=== PATIENT | female | born 1950 | race Caucasian/White ===

== ENCOUNTER 2016-10-19 05:41 | Emergency (ER) | payer OTHER ==
[2016-10-19] MEDS ORDERED: IOPAMIDOL 370 (76%) 100 ML VIAL IV ONE (05:42)
[2016-10-19] MEDS ORDERED: ASPIRIN CHEWTAB 81 MG TABLET ONE (06:26)
[2016-10-19 06:46] LABS: ABSOLUTE NEUTROPHIL COUNT 4.2 K/mm3 (1.8-7.7); BASO # 0.1 K/mm3 (0.0-0.2); BASO % 0.6 % (0.2-1.0); EOS # 0.2 (0.0-0.5); EOS % 2.5 % (0.9-2.9); HEMATOCRIT 43.5 % (37.0-47.0); HEMOGLOBIN 13.9 gm/l (12.0-16.0); IMM NEUT% 0.1 % (0-1); LYMPH # 3.8 (1.0-4.8); MEAN CELL VOLUME 92.8 fl (81.0-99.0); MEAN CORPUSCULAR HEMOGLOBIN 29.6 pg (27.0-31.0); MEAN PLATELET VOLUME 9.9 fl (7.4-10.4); MONO # 0.5 (0.0-0.8); MONO % 5.7 % (4-12); NEUT % 48.1 % (43-75); PLATELET COUNT 259 K/mm3 (130-400); RED CELL DISTRIBUTION WIDTH 13.1 % (11.5-14.5)
[2016-10-19 06:55] LABS: ALB/GLOB RATIO 1.3 (>1.0); ALBUMIN 3.9 gm/dL (3.5-5.7); CALCIUM 8.9 mg/dL (8.6-10.3); MAGNESIUM 1.8 mg/dL (1.9-2.7)
[2016-10-19 07:00] LABS: TROPONIN I < 0.01 ng/ml (0.0-0.06)
[2016-10-19 07:03] LABS: CKMB ISOENZYME 2.2 ng/ml (0.6-6.3)
--- NOTE | 2016-10-19 07:40 | CT ---
Exam: CT angiogram chest with contrast Comparison: Chest radiograph 10/19/2016 History: Elevated d-dimer Technique: CT angiogram of the chest was obtained following the administration of 80 mL Isovue-370 intravenous contrast using a CT angiogram pulmonary embolism protocol which was supplemented with MIP reformations constructed at the CT workstation. Findings: Examination is slightly limited due to motion artifact, however examination is still diagnostic. There is no evidence of acute pulmonary thromboembolic disease through the proximal subsegmental level. There is minor atelectasis in the lingula and to a lesser extent the right middle lobe.There is no significant mediastinal or hilar lymphadenopathy by size criteria. There is no pleural or pericardial effusion. Limited evaluation of the upper abdomen is without acute or concerning abnormality. No worrisome osseous abnormality is identified. IMPRESSION: 1. No evidence of acute pulmonary thromboembolic disease. 2. Minor atelectasis within the lingula and right middle lobe. Report was uploaded to the EMR at 0736 hours 10/19/2016.
--- NOTE | 2016-10-19 07:41 | RAD ---
Exam: Two-view chest COMPARISON: None INDICATION: Awakened with chest heaviness and tachycardia. FINDINGS: PA and lateral views of the chest were obtained. Cardiac silhouette is within normal limits. Lung volumes are low. There is minor atelectasis within the right middle lobe and lingula. Lungs are otherwise clear. There is no focal airspace disease or pleural effusion. Bones of the chest wall within normal limits. IMPRESSION: Minor atelectasis within the right middle lobe and lingula.
[2016-10-19] MEDS ORDERED: LACTATED RINGERS 1,000 ML ONE (07:53)
== END 2016-10-19 08:26 | disposition still patient (30) ==
LOC: ED 05:41
DX: R07.9 Chest pain, unspecified (principal); I10 Essential (primary) hypertension; E66.9 Obesity, unspecified
CPT/HCPCS: 83690; 85379; 85025; 82553; 80053; 83735; 84484; 71020; 71275; 99284; 96360; 93005; 99285; A9270; J7120; Q9967